=== PATIENT | female | born 1965 | race Caucasian/White ===

== ENCOUNTER → 2016-06-17 | Outpatient (CLI) | payer OTHER ==
[~2016-06-17] MED LIST: IOPAMIDOL (ISOVUE 370) 100 ML BTL IV ONE
== END ==
LOC: FIMAGING 13:09
PROVIDERS: ATTEND Physician Assistant Medical
DX: Z53.20 Procedure and treatment not carried out because of patient's decision for unspecified reasons (principal)
CPT/HCPCS: Q9967

== ENCOUNTER → 2016-06-20 | Outpatient (CLI) | payer OTHER ==
--- NOTE | 2016-06-20 16:47 | DX ---
Hysterosalpingogram History: Infertility. Witnessed Consent: Witnessed informed consent was obtained after the risks, benefits, and alternativ es of fluoroscopic hysterosalpingogram were explained to the patient and all questions were answered. Technique: A speculum was placed. The cervix was sterilely cleansed with Betadine solution. A flexibl e balloon catheter was easily inserted into the cervix. The balloon was inflated. Sinografin contrast was injected. Fluoroscopic images were obtained. The balloon was deflated and removed. The speculum were removed. Discharge instructions were given. The patient was discharged without complication. Fluoroscopy time: 0.8 minutes. Dose 3.4 mGy. Findings: Uterus is deviated to the left. The uterus has normal contours. Both tubes fill and spill n ormally. Neither tube is dilated. Impression: 1. Uterus is deviated to the left. 2. Patent bilateral fallopian tubes. Crosscutting Measure #226: Current tobacco user: no.
== END ==
LOC: FIMAGING 13:09
PROVIDERS: ATTEND Physician Assistant Medical
DX: N85.4 Malposition of uterus (principal)
CPT/HCPCS: Q9967

== ENCOUNTER → 2016-07-04 | Outpatient (CLI) | payer OTHER | LOC: FIMAGING 07:34 | PROVIDERS: ATTEND Physician Assistant Medical | DX: Z31.41 Encounter for fertility testing (principal) ==

== ENCOUNTER → 2017-01-09 | Outpatient (CLI) | payer OTHER | LOC: CIMAGING 07:35 | PROVIDERS: ATTEND Family Medicine | DX: Z12.31 Encounter for screening mammogram for malignant neoplasm of breast (principal) | CPT/HCPCS: G0202 ==

== ENCOUNTER → 2017-04-23 | Outpatient (CLI) | payer OTHER | LOC: FIMAGING 13:49 | DX: Z31.41 Encounter for fertility testing (principal) ==

== ENCOUNTER → 2017-06-19 | Outpatient (CLI) | payer OTHER | LOC: FIMAGING 08:08 | PROVIDERS: ATTEND Obstetrics & Gynecology | DX: O09.811 Supervision of pregnancy resulting from assisted reproductive technology, first trimester (principal); O09.511 Supervision of elderly primigravida, first trimester; Z3A.14 14 weeks gestation of pregnancy ==

== ENCOUNTER → 2017-06-26 | Outpatient (CLI) | payer OTHER | LOC: FIMAGING 08:12 | DX: O09.811 Supervision of pregnancy resulting from assisted reproductive technology, first trimester (principal); O09.511 Supervision of elderly primigravida, first trimester; Z3A.01 Less than 8 weeks gestation of pregnancy ==

== ENCOUNTER → 2017-09-25 | Outpatient (CLI) | payer OTHER | LOC: FIMAGING 07:14 | DX: O36.80X0 Pregnancy with inconclusive fetal viability, not applicable or unspecified (principal); D25.9 Leiomyoma of uterus, unspecified; Z3A.00 Weeks of gestation of pregnancy not specified ==

== ENCOUNTER → 2018-01-29 | Outpatient (CLI) | payer OTHER | LOC: FIMAGING 14:31 | PROVIDERS: ATTEND Family Medicine | DX: Z12.31 Encounter for screening mammogram for malignant neoplasm of breast (principal) ==

== ENCOUNTER → 2018-02-26 | Outpatient (CLI) | payer OTHER | LOC: FIMAGING 07:17 | DX: O09.511 Supervision of elderly primigravida, first trimester (principal); O09.811 Supervision of pregnancy resulting from assisted reproductive technology, first trimester; Z3A.01 Less than 8 weeks gestation of pregnancy ==

== ENCOUNTER 2018-03-04 18:58 | Day surgery (SDC) | payer OTHER ==
[2018-03-04 14:39] LABS: PLATELET COUNT 343 10^3/uL (150-400)
[~2018-03-04 18:58] MED LIST changes: +BUPIVACAINE/EPI 0.5% 30 ML SDV ONE; -IOPAMIDOL (ISOVUE 370) 100 ML BTL IV ONE; +METHOTREXATE 25 MG/ML SYRINGE IM ONE; +SILVER NITRATE APPLICATOR 1 APPL TP ONE
[2018-03-04] MEDS ORDERED: ROCURONIUM 50 MG/5 ML VIAL ONE (20:05)
[2018-03-04] MEDS ORDERED: fentaNYL 100 MCG/2 ML INJ ONE ×2 (20:05→22:43)
[2018-03-04] MEDS ORDERED: PROPOFOL 200 MG/20 ML VIAL ONE (20:05)
[2018-03-04] MEDS ORDERED: LIDOCAINE 2% 5 ML SDV ONE (20:07)
[2018-03-04] MEDS ORDERED: MIDAZOLAM 2 MG/2 ML VIAL IVP ONE (20:13)
[2018-03-04] MEDS ORDERED: MIDAZOLAM 2 MG/2 ML VIAL ONE (20:21)
--- NOTE | 2018-03-04 20:22 | PDANEPAE ---
ANE History of Present Illness lap ectopic removal ANE Past Medical History - Cardiovascular History Hx Hypertension: No Hx Arrhythmias: No Hx Chest Pain: No Hx Coronary Artery / Peripheral Vascular Disease: No Hx CHF / Valvular Disease: No Hx Palpitations: No - Pulmonary History Hx COPD: No Hx Asthma/Reactive Airway Disease: No Hx Recent Upper Respiratory Infection: No Hx Oxygen in Use at Home: No Hx Sleep Apnea: No ANE Review of Systems Review of systems is: negative Review of Systems: - Exercise capacity Exercise capacity: >=4 METS ANE Patient History - Allergies Allergies/Adverse Reactions: carbamazepine [From Tegretol] Allergy (Verified 03/04/18 14:06) Rash moxifloxacin Allergy (Verified 03/04/18 14:05) Rash - Home Medications Home medications: home medication list seen and reviewed - NPO status NPO Since - Liquids (Date): 03/04/18 NPO Since - Liquids (Time): 15:00 NPO Since - Solids (Date): 03/04/18 NPO Since - Solids (Time): 12:30 - Anes Hx Anes Hx: no prior problems ANE Labs/Vital Signs - Labs Result Diagrams: 03/04/18 14:15 03/04/18 14:15 - Vital Signs Blood Pressure: 121/80 Heart Rate: 77 Respiratory Rate: 16 O2 Sat (%): 98 Height: 172.72 cm Weight: 55.792 kg ANE Physical Exam - Airway Neck exam: FROM Mallampati Score: Class 1 Mouth exam: normal dental/mouth exam - Pulmonary Pulmonary: no respiratory distress - Cardiovascular Cardiovascular: regular rate and rhythym - ASA Status ASA Status: II ANE Anesthesia Plan Anesthesia Plan: general endotracheal anesthesia
[2018-03-04] MEDS ORDERED: DEXAMETHASONE 4 MG/ML VIAL ONE (20:39)
[2018-03-04] MEDS ORDERED: SUGAMMADEX SODIUM 200 MG/2 ML VIAL IVP ONE (20:39)
[2018-03-04] MEDS ORDERED: ONDANSETRON 4 MG/2 ML VIAL ONE (20:39)
--- NOTE | 2018-03-04 20:50 | GHP ---
DATE OF ADMISSION: 03/04/2018 HISTORY OF PRESENT ILLNESS: The patient is a 53-year-old G3, now A3, white female who is diagnosed t martinez with an ectopic due to elevating hCG levels without any evidence of intrauterine pregn som. The patient was sent to labor and delivery to receive methotrexate management for her ectopic. The patient was previously seen at [facility] and had an ultrasound today, but could not stay for discussion afterwards and had to go to work. The patient was called with the concerning ernst brock and asked to present for discussion. The patient has had increase in her hCG levels from 3180- 7517 to currently 8979. An ultrasound performed this morning reveals no intrauterine . The ovaries were not seen well, but there was no obvious mass in the adnexa or fluid or blood in the cul -de-sac or adnexa. The patient only reported minimal discomfort in her right lower quadrant and only described as cramping. The patient denied any vaginal bleeding. This is a result of IVF performed in [place]. The patient and her partner, Reynaldo, are upset and confused as how the pregnanc y could leave the uterus and end up in the tube. The patient has been having loose bowels and irrita tion in her lower abdomen and felt it was due to a prior history of microcolitis. The patient has be en on a lot of supplements and hormone additives due to the IVF, as well as Lovenox. Her last dose w as in the evening on 03/03. The patient, by IVF, is to be 6 weeks and 3 days, and we discussed the f act that an hCG level this high should reveal a gestational sac or something in the uterus and there is nothing evident. The options for management of ectopic were thoroughly discussed with the patient including surgery versus methotrexate management. The patient reports that she has discussed the fi ndings with her [place] physicians who state that if she had to have surgery, there might actually b e benefit for future IVF that the patient plans with them. This has now made the patient rethink a p revious decision of approaching this with a methotrexate shot. There is also caution for the patient with methotrexate given her GI history of microcolitis, as well as elevated liver functions by the lillian perez's report back in August. 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 I feel the patient still is a candidate for methotrexate. However, she certain ly might have a flare of her microcolitis, and her liver function tests are normal today. A long dis cussion was had with the patient and her partner about the options, and the patient finally decided t hat she wanted to proceed with laparoscopy for removal of both tubes, and assuming that this is also going to remove the ectopic. Again, the patient has anxiety because the ultrasound does not find the ectopic, that this might not capture all of the tissue. I explained that if there was no sign of di stortion of the tubes, that I would probably have a surgeon evaluate the colon and the omentum to loo k for any mass, as there is likely some sign with an hCG level this high. The patient last had lunch approximately 12:30, so surgery will be planned later for safety due to risk of aspiration pneumonia . She also had 2 cups of water approximately 3 p.m. PAST MEDICAL HISTORY: History of depression and anxiety followed by Dr. Patrick. The patient has be en on different medications with currently Pristiq. Hypothyroidism, on Synthroid. Periodic Ativan f or anxiety. Currently, estrogen and progesterone with other supplements for the . Lovenox, questionable dose last given at 10:17 a.m. Microscopic colitis[facility] managed with [place] physician. External genital warts and evidenc e of lichen sclerosis. PAST SURGICAL HISTORY: Urethral dilation 12/22. IVF procedures in [place]. PAST HISTORY: A missed AB at 7 weeks, SAB at 5-6 weeks, that was in June 2017. ALLERGIES: The patient reports an allergy to Tegretol and Avelox causing a drug-induced hepatitis. Patient is also sensitive to dairy and possible gluten, but was tested and is negative for celiac. CURRENT MEDICATIONS: Synthroid 88 mcg. Pristiq daily. Ativan 0.5-1 mg p.r.n. Other supplements fo r with IVF. SOCIAL HISTORY: The patient has a regular and supportive partner, Reynaldo, who has been present with th e patient. Patient is a nonsmoker. No alcohol or drug use. Drinks a cup of coffee a day. PAST ESTABLISHMENT GUIDE HISTORY: External genital warts as noted above. History of normal Pap smears. History of infrequent menstrual cycles and felt to be perimenopausal, using hormone replacement patches for year s. Had a Mirena in the past that was removed in 2016 that had been balancing the estrogen patch. No history of PID or other sexually transmitted infections. 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 LIMITED PHYSICAL EXAM: GENERAL: The patient is a well-developed, well-nourished white female in no physical signs of distress, but does complain of mild right lower quadrant cramps. The patient is an xious and upset with how the is going. VITAL SIGNS: Were all normal. See nursing documen tation for full details. The patient is afebrile and blood pressure 121/80. LUNGS: Clear to auscul tation bilaterally. CARDIOVASCULAR: Regular rate and rhythm. ABDOMEN: Soft with mild tenderness i n the right lower quadrant. PELVIC: Deferred. EXTREMITIES: Nontender. No edema. LABORATORY EVALUATION: Reveals maternal blood type A positive. CBC shows a white count of 5.9, hemo globin 12.4, hematocrit 37.2, and platelets 343,000. Complete metabolic panel performed. Liver func tion tests are normal. Alkaline phosphatase is 36, creatinine is 1.0. Again, current hCG level was 8979. ASSESSMENT: Ectopic at 6-1/2 weeks' gestation after in vitro fertilization. HCG level peggy ost 9000, with no evidence of intrauterine . No current mass found or evidence of fluid in the pelvis, but ovaries or adnexa are difficult to visualize. Patient with history of microscopic co litis, with a recent minor flare, and history of abnormal liver tests, per patient, due to a hepatiti s reaction from medications. Current history of depression and anxiety. PLAN: The patient has decided to proceed with laparoscopic removal of the ectopic with bilateral paris pingectomies. The patient is hoping for the additional benefit to help IVF, which she plans to proce ed with in [place] and cancer risk reduction over time. A full hour was spent with thorough consult ation with the patient and her partner. Decision of surgery was made and the patient will return lat er remaining n.p.o. at this time to have surgery later tonight. /[id number]/MODL
--- NOTE | 2018-03-04 20:56 | POSTANESTH ---
Post Anesthetic Evaluation Cardiovascular Status: Normal, Stable Respiratory Status: Normal, Stable Level of Consciousness/Mental Status: Can Participate in Eval, Alert and Oriented Pain Control: Adequate, Prn Tx Ordered Nausea/Vomiting Control: Adequate, Prn Tx Ordered Complications Possibly Related to Anesthesia: None Noted
[2018-03-04] MEDS ORDERED: ceFAZolin 1 GM VIAL ONE ×2 (21:11)
[2018-03-04] MEDS ORDERED: ONDANSETRON 4 MG/2 ML VIAL IVP PRN (22:08)
[2018-03-04] MEDS ORDERED: ALBUTEROL 3 ML DEYVIAL IH PRN (22:08)
[2018-03-04] MEDS ORDERED: ACETAMINOPHEN 500 MG TAB PO PRN (22:08)
[2018-03-04] MEDS ORDERED: HYDROmorphONE/DILAUDID 2 MG/ML INJ IVP PRN (22:08)
[2018-03-04] MEDS ORDERED: NALOXONE HCL 0.4 MG/ML INJ IVP PRN (22:08)
[2018-03-04] MEDS ORDERED: fentaNYL 100 MCG/2 ML INJ IVP PRN (22:08)
[2018-03-04] MEDS ORDERED: PROMETHAZINE HCL 25 MG/ML INJ IVP PRN (22:08)
[2018-03-04] MEDS ORDERED: HYDROCODONE/APAP 5/325 TAB PO PRN (22:08)
[2018-03-04] MEDS ORDERED: oxyCODONE IR 5 MG TAB PO PRN ×2 (22:08→22:40)
[2018-03-04] MEDS ORDERED: LR 500 ML IV PRN (22:08)
[2018-03-04] MEDS ORDERED: KETOROLAC 30 MG/1 ML SDV ONE (22:12)
--- NOTE | 2018-03-04 22:46 | POSTOPPROG ---
Post Op Note Date of Operation: 03/04/18 Surgeon: Mirella Watts Anesthesiologist: Kong Fernandez MD Anesthesia: GET(General Endotracheal) Pre-op Diagnosis: ectopic Post-op Diagnosis: same, unsure site Indication: HCG 9000 with empty uterus, no mass/bld in pelvis, adnexa nl Procedure: LSC BS Findings: normal uterus, nl tubes and thin ovaries/appear streaked. nl bowel/ appi Inf/Abcess present in the surg proc area at time of surgery?: No Depth: Organ Space EBL: Minimal Complications: unable to obviously see ectopic site, tubes appeared nl, bowel ran to see if any mass by general surgeon. nl liver/appi/gallbladder per gen surgeon. nl ureters Specimen(s): both tubes
[2018-03-04 23:36] VITALS: BP 105/67
--- NOTE | 2018-03-05 11:23 | GOP ---
DATE OF OPERATION: 03/04/2018 SURGEON: Mirella Watts MD ANESTHESIA: General endotracheal anesthesia. ANESTHESIOLOGIST: Kong Alonso MD. PREOPERATIVE DIAGNOSIS: Suspected right ectopic . POSTOPERATIVE DIAGNOSIS: Ectopic with unknown site. PROCEDURE PERFORMED: Laparoscopic bilateral salpingectomies and intraoperative surgical consultation. FINDINGS: INDICATIONS: The patient is a 53-year-old, G3, now A3, white female with high concern for an ectopic due to inappropriately elevated hCG levels with no evidence of intrauterine . Most recent hCG approximately 9000 with an empty intrauterine cavity. On ultrasound, there was no obvious mass in the adnexal areas; however, there was some difficulty visualizing the ovaries well. There was no evidence of free fluid. The patient has been having mild right lower quadrant cramping which has been increasing through the day. The patient was counseled as to the options of methotrexate versus surgical approach. The patient became through IVF and was advised by her [facility] physicians in [place] that removing her tubes might give her benefit for future IVF plans. The patient also is aware of reduction in cancer risk with removing tubes. The patient decided to approach the proposed ectopic with surgery. Risks and benefits were discussed and the consent form signed. DESCRIPTION OF PROCEDURE: The patient was taken to the operating room, where following satisfactory general endotracheal anesthesia, the patient was placed in dorsal lithotomy position appropriate for laparoscopy. The patient had urinated prior to coming to the operating room, and a Rankin catheter was placed. The patient received 2 g of Ancef at the start of the procedure. The patient had SCDs on her lower extremities for DVT prophylaxis. The patient was prepped and draped in usual sterile manner for laparoscopy. A sterile speculum was placed vaginally, and a [employer] uterine manipulator was attached to the anterior lip of the cervix. A sterile exam was done prior to the procedure, and there was approximately a 2 cm mass palpable on the right lower quadrant lateral to the uterus. Attention was turned to the abdominal portion. A marking was used at the incision site. A 1 cm incision was made in the infraumbilical area sharply and then a Veress needle was introduced into the abdomen through this site. This was done with upward traction on the abdominal wall to reduce risk to the internal organs. There were good opening pressures, and CO2 was used to insufflate the abdomen. After good insufflation, then the 5 mm trocar was placed, and the laparoscopic camera was introduced and confirmed intra- abdominal position. There was no sign of blood in the pelvis. Another 5 mm trocar was introduced in the right lower quadrant in the same manner. The laparoscope was used for direct visualization during placement. Inspection was performed, and there was no obvious sign of mass or distention of either tube. An additional 5 mm trocar was placed in the left lower quadrant in the same manner to assist in inspection and removal of the tubes. As the tubes were not the obvious site of the ectopic, the general surgeon chief communications officer was requested to come into the surgery and inspect for other ectopic positioning of a mass. When the surgeon was available, he ran the bowel through the entire course and did not see any signs of increased vascularity or mass in the omentum or along the bowel. There was a white filmy appearance on some edges of the liver; however, the surgeon felt that this was normal. He also inspected under the liver and felt the gallbladder was normal. He felt the appendix looked normal. After the surgeon was finished with a very thorough evaluation, then the tubes were removed with the LigaSure. They were elevated with an atraumatic grasper at the isthmic portion, and the LigaSure was used to cauterize and then transect along the mesosalpinx up to the isthmic portion and then they were transected free and removed through the 5 mm trocar without any problem. An additional area on the edge of the ovary on the right appeared possible questionable for retained fimbrial tissue, and an additional small segment was cauterized and transected off and sent with pathology. The left tube was removed in entirety. Bilaterally, the ureters could be seen very easily and peristalsing normally down below the operative field. Both ovaries were very small and had a somewhat streaked appearance. The uterus itself appeared normal. There was no atypical tissue in the anterior or posterior cul-de-sacs. The procedure was completed. The laparoscope was used to watch the lower trocars being removed, and there was no issue. Then, gas was allowed to escape through the umbilical port, and the 5 mm trocar was removed without problems. Each of the 5 mm incisions was closed with a horizontal mattress-type stitch of 0 Monocryl. Band-Aids were placed over the incisions. The [employer] uterine manipulator was removed from the cervix, and there was minimal bleeding from the cervix. The patient was cleaned off and taken out of position. The patient was awoken and then taken to the recovery room in stable condition. After the patient was awoken, she and her partner were advised of the findings on laparoscope, and we will watch hCG levels carefully and check pathology tomorrow. /[id number]/MODL MTDD
== END 2018-03-04 23:45 | disposition home or self-care (01) ==
LOC: F3E 18:58 → UNDOADMIN 18:58 → FSGY 18:58 → UNDODISIN 23:45
PROVIDERS: ATTEND Obstetrics & Gynecology
PROC: 0UT74ZZ Resection of Bilateral Fallopian Tubes, Percutaneous Endoscopic Approach (ICD-10-PCS; principal; 2018-03-04 20:30)
DX: O00.101 Right tubal pregnancy without intrauterine pregnancy (principal)
CPT/HCPCS: J0690; J1100; J1885; J2250; J2405; J2704; J3010; J9250

== ENCOUNTER 2018-03-05 16:06 | Observation (INO) | payer OTHER ==
--- NOTE | 2018-03-05 17:00 | PDGENHP ---
History & Physical Chief Complaint: Repeat HCG, unknown location History of Present Illness: 53 yo presents to L&D today for repeat HCG and potential MTX treatment. Briefly, she recently underwent IVF cycle with [facility] in [place]. We were following abnormally rising HCG's in clinic and yesterday met with Dr. Webber regarding beta of nearly 9k and no US evidence of IUP. Counseled on MTX vs LS and elected to undergo LS with plan to remove tubes as thought that might help future chances of IVF. Path on tubes came back no tissue anywhere. Comes in today to f/u. Denies any pain, no bleeding. Incisions from LS last night healing well. Pertinent Past, Social, Family History: Non-contributory. Relevant Physical Exam: NAD, Belly soft, LS incisions CDI with some redness around umbilical site - no s/sx of infx. Lab and Imaging Laboratory Tests 02/26/18 03/02/18 03/04/18 07:20 07:50 09:31 Beta HCG, Quant 3180.90 H 7517.30 H 8979.50 H 03/05/18 15:20 Beta HCG, Quant 22603.00 H Date of Service: 03/05/18 Acct Num: [id number] Ultrasound Obstetrics 1 TRI <14 WKS ___ Pelvic Ultrasound (Transabdominal and Endovaginal) with color flow and spectral Doppler History: Patient with HCG of 9k and no visible in the uterus, suspected ectopic . Underwent laparoscopic salpingectomies 03/04/19 with no tissue found in tubes. Looking for early IUP, ovarian ectopic, etc.. IVF procedure with transfer performed on 02/02/2018. Comparison: 02/26/2018 Findings: The pelvis was first examined through a mildly distended bladder from Transabdominal approach. UTERUS: Size: 8.6 cm x 3.9 cm x 6.1 cm in longitudinal, AP, and transverse projections. Orientation: Anteflexed. Uterine Masses: None seen. Endometrium: Moderately thickened. ADNEXA: No adnexal masses. The pelvis was then evaluated from Endovaginal approach after the bladder was emptied to better evaluate the uterus and adnexa. UTERUS: The endometrial stripe is thickened measuring 11 mm. There appears to be double decidual sac sign with very thickened gestational sac component and a small amount of central fluid that probably represents collapsed gestational sac. The central fluid component measures 8 x 8 x 1 mm with the thickened wall within the endometrial canal measuring 17 x 8 x 18 mm. There is incidental subserosal fibroid along the posterior left aspect of the uterine body measuring 1.5 x 1.1 x 1.7 cm and a small anterior fibroid measuring less than 1 cm. ADNEXA: Normal. Right ovary size: 1.7 x 0.7 x 1.6 cm without focal abnormality. Left ovary size: 1 x 1.9 x 1.1 cm without focal abnormality. Color flow and spectral Doppler: Normal color flow imaging with normal Doppler waveform bilaterally. Free fluid: None. Other findings: None. Impression: 1. Mildly thickened endometrial stripe with possible thickened wall of the gestational sac with the fluid component flattened centrally. This is felt to be indeterminate for intrauterine at this time. Findings are suspicious for KAREN OMALLEY : 1965 Age: 53 FLD UNIT NUM: [id number] PHYS: Luis Hayden MD Report Status: Signed 1 of 2 [facility] [address] [place] [id number] failure. Consider follow-up ultrasound as clinically directed. 2. Small incidental subserosal uterine fibroids. 3. Normal-appearing ovaries. A/P Assessment: unknown location, Abnormally rising HCG level POD1 s/p DxLS, LS salpingectomies Plan: Long discussion with radiologist re today's US. Long discussion with patient to follow. At this point we do see potential evidence of early IUP in the uterus. Her HCG's are rising, but not as fast as anticipated. No other US concerns for ectopic, and pt has no pain. Discussed RBA to MTX vs observation and at this point would observe. Will have her come back for HCG level this coming Thursday, with US appt and f/u with Dr. Webber on Thursday. BEREKET
[2018-03-05 17:50] VITALS: BP 118/74
== END 2018-03-05 20:00 | disposition home or self-care (01) ==
LOC: FLD 16:06
PROVIDERS: ADMIT Obstetrics & Gynecology; ATTEND Obstetrics & Gynecology
DX: Z32.00 Encounter for pregnancy test, result unknown (principal)
CPT/HCPCS: 76801; G0378